=== PATIENT | female | born 1980 | race Caucasian/White ===

== ENCOUNTER 2016-03-31 12:21 | Emergency (ER) | payer OTHER ==
--- NOTE | 2016-03-31 13:33 | EDDOCDS ---
Physician Documentation [facility] Name: Vangie James Age: 35 yrs Sex: Female : 1980 Arrival Date: 03/31/2016 Time: 12:21 Bed Triage 3 Private MD: Ilda [facility] Disposition: 03/31/16 13:22 Discharged to Home/Self Care. Impression: Sprain of unspecified site of right knee. - Condition is Stable. - Discharge Instructions: Knee Sprain. - Prescriptions for Naprosyn 500 mg Oral Tablet - take 1 tablet by ORAL route every 12 hours As needed take with food; 30 tablet. - Medication Reconciliation, Local Pharmacy Hours, Work Release Form - 2 day form. - Follow up: Emergency Department; When: As needed; Reason: Worsening of conditions. Follow up: [facility]; When: Call to arrange an appointment; Reason: Wound/Symptom Recheck, Further diagnostic work-up, Recheck today's complaints, Continuance of care, To establish care. - Problem is new. - Symptoms are unchanged. Historical: - Allergies: no known allergies; Denies latex allergy; - Home Meds: 1. none - PMHx: none; - PSHx: Tubal ligation; biopsy of right eye; - Social history: Smoking status: Patient uses tobacco products, light tobacco smoker. No barriers to communication noted, The patient speaks fluent [place] Citizen, Speaks appropriately for age. - Family history: Not pertinent. - : The pt / caregiver states he / she is not on anticoagulants. Home medication list is obtained from the patient. - Exposure Risk Screening:: None identified. 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 6 in. (167.64 cm) (R); 12:22 Body Mass Index 31.47 (88.45 kg, 167.64 cm) dd6 MDM: 12:32 Knee, Complete Ordered. EDMS 13:22 Poncho Wrap ordered. dt4 Signatures: Dispatcher [employer] EDHallie Vernon RN RN hs1 Tschudi, Tequila, PA-C PA-C dt4 MTDD
--- NOTE | 2016-03-31 13:33 | EDDOCDS ---
Nurse's Notes [facility] Name: Vangie James Age: 35 yrs Sex: Female : 1980 Arrival Date: 03/31/2016 Time: 12:21 Bed Triage 3 Private MD: RANDAL Gonsales Diagnosis: Sprain of unspecified site of right knee Presentation: 03/31 12:25 Presenting complaint: Patient states: right knee swollen and patient states have heard hs1 something about a meniscus but is unsure really what is going on. Patient states because she is working more now that he knee is giving her more problems. Adult Sepsis Screening: The patient does not have new or worsening altered mentation. Patient's respiratory rate is less than 22. Systolic blood pressure is greater than 100. Patient has a qSOFA score of 0- Negative Sepsis Screen. Suicide/Homicide risk assessment- the patient denies having any suicidal and/or homicidal ideations and does not present with any other emotional, behavioral or mental health complaints. Status: The patient is a dependent. Transition of care: patient was not received from another setting of care. 12:25 Acuity: MARY Level 4 hs1 12:25 Method Of Arrival: Walkin/Carried/Asstd hs1 Triage Assessment: 12:29 General: Appears in no apparent distress, Behavior is appropriate for age, cooperative. hs1 Pain: Location: right knee Pain currently is 5 out of 10 on a pain scale. Quality of pain is described as aching, dull. Pt Declines HIV testing. 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 none - PMHx: none; - PSHx: Tubal ligation; biopsy of right eye; - Social history: Smoking status: Patient uses tobacco products, light tobacco smoker. No barriers to communication noted, The patient speaks fluent [place] Islander, Speaks appropriately for age. - Family history: Not pertinent. - : The pt / caregiver states he / she is not on anticoagulants. Home medication list is obtained from the patient. - Exposure Risk Screening:: None identified. Screenin:31 Screening information is obtained from the patient. Fall risk: No risks identified. hs1 Assistance ADL's: requires no assistance with activities of daily living. Abuse/DV Screen: The patient / caregiver reports he/she is: not in a situation that causes fear, pain or injury. Nutritional screening: No deficits noted. Advance Directives: There is no active DNR order. home support is adequate. Assessment: 12:58 General: Appears in no apparent distress, Behavior is cooperative, Right knee pain, dwg chronic for ''years'', pain has worsened since starting new job recently, ''always on my feet''. No new trauma.. 13:29 Reassessment: Patient appears in no apparent distress at this time. Patient states hs1 feeling better. Patient states symptoms have improved. Vital Signs: 12:22 BP 143 / 96; Pulse 57; Resp 18 S; Temp 97.4(O); Pulse Ox 100% on R/A; Weight 88.45 kg dd6 (R); Height 5 ft. 6 in. (167.64 cm) (R); 12:22 Body Mass Index 31.47 (88.45 kg, 167.64 cm) dd6 Vitals: 12:22 Log In Time: March 31, 2016 at 12:20. dd6 ED Course: 12:[address] PCA. dd6 12:22 Ilda [facility] is Private Physician. dd6 12:22 Patient moved to Waiting dd6 12:23 Patient moved to Pre RCE dd6 12:27 Triage Initiated hs1 12:54 Patient moved to Triage 3 dwg 12:58 Tequila Fish [facility]. dt4 12:58 Radha Thompson MD is Attending Physician. dt4 12:58 Patient visited by Tequila Fish PA-C. dt4 13:21 [facility] is Referral Physician. dt4 13:27 Patient visited by Britney Mooney PCA. ct3 13:27 Poncho wrap to right knee. ct3 13:30 No IV's were initiated during this patient's visit. No procedures done that require hs1 assistance. 13:31 The patient / caregiver is instructed regarding the plan of care and ED course. hs1 Order Results: There are currently no results for this order. Outcome: 13:22 Discharge ordered by Provider. dt4 13:30 Discharge Assessment: Patient awake, alert and oriented x 3. No cognitive and/or hs1 functional deficits noted. Patient verbalized understanding of disposition instructions. patient administered narcotics - no. The following High Risk Discharge criteria are identified: None. Discharged to home ambulatory. Condition: good. Discharge instructions given to patient, Instructed on discharge instructions, follow up and referral plans. medication usage, Demonstrated understanding of instructions, medications, Pt was receptive of discharge instructions/ teaching. No special radiology studies were completed. Property sent home with patient. 13:31 Patient left the ED. hs1 Signatures: Zeus Davalos, RN RN [facility] Lane Hoskins, PAID SEARCH ANALYST PAID SEARCH ANALYST dd6 Hallie Murillo RN RN hs1 Britney Mooney, PAID SEARCH ANALYST PAID SEARCH ANALYST ct3 Tequila Fish PA-C PA-C dt4 MTDD
--- NOTE | 2016-04-02 11:02 | REP ---
Right knee five views : There is no fracture or dislocation. Mineralization and joint spaces are normal. There are no calcifications or foreign bodies. There is no effusion. Impression: Negative right knee . Signed by Zeus Leggett MD 03/31/2016 01:42 P
--- NOTE | 2016-04-02 14:33 | EDDOCDS ---
Physician Documentation [facility] Name: Vangie James Age: 35 yrs Sex: Female : 1980 Arrival Date: 03/31/2016 Time: 12:21 Bed Triage 3 Private MD: Ilda [facility] Disposition: 03/31/16 13:22 Discharged to Home/Self Care. Impression: Sprain of unspecified site of right knee. - Condition is Stable. - Discharge Instructions: Knee Sprain. - Prescriptions for Naprosyn 500 mg Oral Tablet - take 1 tablet by ORAL route every 12 hours As needed take with food; 30 tablet. - Medication Reconciliation, Local Pharmacy Hours, Work Release Form - 2 day form. - Follow up: Emergency Department; When: As needed; Reason: Worsening of conditions. Follow up: [facility]; When: Call to arrange an appointment; Reason: Wound/Symptom Recheck, Further diagnostic work-up, Recheck today's complaints, Continuance of care, To establish care. - Problem is new. - Symptoms are unchanged. Historical: - Allergies: no known allergies; Denies latex allergy; - Home Meds: 1. none - PMHx: none; - PSHx: Tubal ligation; biopsy of right eye; - Social history: Smoking status: Patient uses tobacco products, light tobacco smoker. No barriers to communication noted, The patient speaks fluent [place], Speaks appropriately for age. - Family history: Not pertinent. - : The pt / caregiver states he / she is not on anticoagulants. Home medication list is obtained from the patient. - Exposure Risk Screening:: None identified. FOOD STYLIST: 03/31 12:31 LMP 03/23/2016 hs1 Vital Signs: 12:22 BP 143 / 96; Pulse 57; Resp 18 S; Temp 97.4(O); Pulse Ox 100% on R/A; Weight 88.45 kg / dd6 195 lbs (R); Height 5 ft. 6 in. (167.64 cm) (R); 12:22 Body Mass Index 31.47 (88.45 kg, 167.64 cm) dd6 MDM: 12:32 Knee, Complete Ordered. EDMS 13:22 Poncho Wrap ordered. dt4 14:49 Financial registration complete. mm15 14:49 [facility] Payment Agreement was scanned into [employer] and attached to record. mm15 17:19 T-Sheet-- Draft Copy was scanned into [employer] and attached to record. klr Signatures: Dispatcher [employer] Hallie Craft RN RN hs1 Serena Gray mm15 Tequila Fish PA-C PA-C dt4 Lyudmila Cuellar The chart was reviewed and I authenticate all verbal orders and agree with the evaluation and treatment provided.Attachments: 14:49 [facility] Payment Agreement mm15 17:19 T-Sheet-- Draft Copy klr Chart Complete MTDD
--- NOTE | 2016-04-02 14:33 | EDDOCDS ---
Nurse's Notes [facility] Name: Vangie James Age: 35 yrs Sex: Female : 1980 Arrival Date: 03/31/2016 Time: 12:21 Bed Triage 3 Private MD: RANDAL Gonsales Diagnosis: Sprain of unspecified site of right knee Presentation: 03/31 12:25 Presenting complaint: Patient states: right knee swollen and patient states have heard hs1 something about a meniscus but is unsure really what is going on. Patient states because she is working more now that he knee is giving her more problems. Adult Sepsis Screening: The patient does not have new or worsening altered mentation. Patient's respiratory rate is less than 22. Systolic blood pressure is greater than 100. Patient has a qSOFA score of 0- Negative Sepsis Screen. Suicide/Homicide risk assessment- the patient denies having any suicidal and/or homicidal ideations and does not present with any other emotional, behavioral or mental health complaints. Status: The patient is a dependent. Transition of care: patient was not received from another setting of care. 12:25 Acuity: MARY Level 4 hs1 12:25 Method Of Arrival: Walkin/Carried/Asstd hs1 Triage Assessment: 12:29 General: Appears in no apparent distress, Behavior is appropriate for age, cooperative. hs1 Pain: Location: right knee Pain currently is 5 out of 10 on a pain scale. Quality of pain is described as aching, dull. Pt Declines HIV testing. 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 none - PMHx: none; - PSHx: Tubal ligation; biopsy of right eye; - Social history: Smoking status: Patient uses tobacco products, light tobacco smoker. No barriers to communication noted, The patient speaks fluent Haitian, Speaks appropriately for age. - Family history: Not pertinent. - : The pt / caregiver states he / she is not on anticoagulants. Home medication list is obtained from the patient. - Exposure Risk Screening:: None identified. Screenin:31 Screening information is obtained from the patient. Fall risk: No risks identified. hs1 Assistance ADL's: requires no assistance with activities of daily living. Abuse/DV Screen: The patient / caregiver reports he/she is: not in a situation that causes fear, pain or injury. Nutritional screening: No deficits noted. Advance Directives: There is no active DNR order. home support is adequate. Assessment: 12:58 General: Appears in no apparent distress, Behavior is cooperative, Right knee pain, dwg chronic for ''years'', pain has worsened since starting new job recently, ''always on my feet''. No new trauma.. 13:29 Reassessment: Patient appears in no apparent distress at this time. Patient states hs1 feeling better. Patient states symptoms have improved. Vital Signs: 12:22 BP 143 / 96; Pulse 57; Resp 18 S; Temp 97.4(O); Pulse Ox 100% on R/A; Weight 88.45 kg dd6 (R); Height 5 ft. 6 in. (167.64 cm) (R); 12:22 Body Mass Index 31.47 (88.45 kg, 167.64 cm) dd6 Vitals: 12:22 Log In Time: March 31, 2016 at 12:20. dd6 ED Course: 12:[address] PCA. dd6 12:22 Ilda [facility] is Private Physician. dd6 12:22 Patient moved to Waiting dd6 12:23 Patient moved to Pre RCE dd6 12:27 Triage Initiated hs1 12:54 Patient moved to Triage 3 dwg 12:58 [facility]equila Fish [facility]. dt4 12:58 Radha Thompson MD is Attending Physician. dt4 12:58 Patient visited by Tequila Fish PA-C. dt4 13:21 [facility] is Referral Physician. dt4 13:27 Patient visited by Britney Mooney PCA. ct3 13:27 Poncho wrap to right knee. ct3 13:30 No IV's were initiated during this patient's visit. No procedures done that require hs1 assistance. 13:31 The patient / caregiver is instructed regarding the plan of care and ED course. hs1 14:49 [facility] Payment Agreement was scanned into [employer] and attached to record. mm15 15:01 Patient name changed from Vangie\S\\S\Jacob\S\ to Vangie\S\ \S\Jacob. EDMS 17:19 T-Sheet-- Draft Copy was scanned into [employer] and attached to record. klr 04/02 11:18 Knee, Complete Returned. EDMS Order Results: Radiology Order: Knee, Complete Test: Knee, Complete REASON FOR EXAMINATION: right knee swelling; Right knee five views :; ; There is no fracture or dislocation.; ; Mineralization and joint spaces are normal.; ; There are no calcifications or foreign bodies. There is no effusion.; ; Impression:; ; Negative right knee .; ; ; Signed by; Zeus Leggett MD 03/31/2016 01:42 P; Outcome: 03/31 13:22 Discharge ordered by Provider. dt4 13:30 Discharge Assessment: Patient awake, alert and oriented x 3. No cognitive and/or hs1 functional deficits noted. Patient verbalized understanding of disposition instructions. patient administered narcotics - no. The following High Risk Discharge criteria are identified: None. Discharged to home ambulatory. Condition: good. Discharge instructions given to patient, Instructed on discharge instructions, follow up and referral plans. medication usage, Demonstrated understanding of instructions, medications, Pt was receptive of discharge instructions/ teaching. No special radiology studies were completed. Property sent home with patient. 13:31 Patient left the ED. hs1 Signatures: Dispatcher [facility] Zeus Davalos, RN SUSHIL dw Lane Hoskins, CORDWOOD CUTTER HELPER CORDWOOD CUTTER HELPER dd6 Hallie Murillo RN RN hs1 Britney Mooney, CORDWOOD CUTTER HELPER CORDWOOD CUTTER HELPER ct3 Serena Gary mm15 Tequila Fish PA-C PA-C dt4 Lyudmila Cuellar singh Chart Complete MTDD
--- NOTE | 2016-04-02 14:33 | EDDOCDS ---
Physician Documentation [facility] Name: Vangie James Age: 35 yrs Sex: Female : 1980 Arrival Date: 03/31/2016 Time: 12:21 Bed Triage 3 Private MD: Ilda [facility] Disposition: 03/31/16 13:22 Discharged to Home/Self Care. Impression: Sprain of unspecified site of right knee. - Condition is Stable. - Discharge Instructions: Knee Sprain. - Prescriptions for Naprosyn 500 mg Oral Tablet - take 1 tablet by ORAL route every 12 hours As needed take with food; 30 tablet. - Medication Reconciliation, Local Pharmacy Hours, Work Release Form - 2 day form. - Follow up: Emergency Department; When: As needed; Reason: Worsening of conditions. Follow up: [facility]; When: Call to arrange an appointment; Reason: Wound/Symptom Recheck, Further diagnostic work-up, Recheck today's complaints, Continuance of care, To establish care. - Problem is new. - Symptoms are unchanged. Historical: - Allergies: no known allergies; Denies latex allergy; - Home Meds: 1. none - PMHx: none; - PSHx: Tubal ligation; biopsy of right eye; - Social history: Smoking status: Patient uses tobacco products, light tobacco smoker. No barriers to communication noted, The patient speaks fluent [place], Speaks appropriately for age. - Family history: Not pertinent. - : The pt / caregiver states he / she is not on anticoagulants. Home medication list is obtained from the patient. - Exposure Risk Screening:: None identified. 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 6 in. (167.64 cm) (R); 12:22 Body Mass Index 31.47 (88.45 kg, 167.64 cm) dd6 MDM: 12:32 Knee, Complete Ordered. EDMS 13:22 Poncho Wrap ordered. dt4 14:49 Financial registration complete. mm15 14:49 [facility] Payment Agreement was scanned into [employer] and attached to record. mm15 17:19 T-Sheet-- Draft Copy was scanned into [employer] and attached to record. klr Signatures: Dispatcher [employer] Hallie Craft RN RN hs1 Serena Gray mm15 Tequila Fish PA-C PA-C dt4 Lyudmila Cuellar The chart was reviewed and I authenticate all verbal orders and agree with the evaluation and treatment provided.Attachments: 14:49 [facility] [place] Payment Agreement mm15 17:19 T-Sheet-- Draft Copy klr Chart Complete MTDD
== END 2016-03-31 13:31 | disposition home or self-care (01) ==
LOC: M ED 12:21
DX: S83.91XA Sprain of unspecified site of right knee, initial encounter (principal); X58.XXXA Exposure to other specified factors, initial encounter; Y93.89 Activity, other specified; Y92.89 Other specified places as the place of occurrence of the external cause; Y99.0 Civilian activity done for income or pay; F17.200 Nicotine dependence, unspecified, uncomplicated